=== PATIENT | female | born 1950 | race Caucasian/White ===

== ENCOUNTER 2024-11-27 11:14 | Day surgery (SDC) | payer MEDICARE ==
[2024-11-27] VITALS (14 sets, daily range): BP systolic 140–198; BP diastolic 72–134; PULSE 61–72; RESP 12–15; TEMP 98.1; O2SAT 94–98
[~2024-11-27] VITALS: Ht 152.4 cm; Wt 84.9 kg
[~2024-11-27 11:14] MED LIST: DOCU-122 PO
[2024-11-27] MEDS ORDERED: ASPI81TA52 PO (12:00)
[2024-11-27] MEDS ORDERED: CHOL500050 PO (12:00)
[2024-11-27] MEDS ORDERED: HYDR-3965 PO (12:01)
[2024-11-27] MEDS ORDERED: METH-1026 PO (12:02)
[2024-11-27] MEDS ORDERED: LISI20TA28 PO (12:02)
[2024-11-27] MEDS ORDERED: HYDR12.55 PO (12:03)
[2024-11-27] MEDS: normal saline 1000ml 1,000 ML IV SCH (12:46)
[2024-11-27] MEDS: fentaNYL/PF 50MCG/1 ML 2ML syringe IV ONE (12:46)
[2024-11-27] MEDS: MIDAZolam 1mg/ml 10ml vial IV ONE (12:46)
== END 2024-11-27 15:00 | disposition home or self-care (01) ==
LOC: SSTAY O 11:14 → EDSTATUS 17:00
PROVIDERS: ATTEND Internal Medicine Interventional Cardiology
DX: D05.00 Lobular carcinoma in situ of unspecified breast (principal); I08.3 Combined rheumatic disorders of mitral, aortic and tricuspid valves; I10 Essential (primary) hypertension; E03.9 Hypothyroidism, unspecified; Z85.3 Personal history of malignant neoplasm of breast; Z85.830 Personal history of malignant neoplasm of bone; Z98.890 Other specified postprocedural states; Z79.82 Long term (current) use of aspirin; Z79.891 Long term (current) use of opiate analgesic; Z79.899 Other long term (current) drug therapy
CPT/HCPCS: 93312; 93325; J2250; J3010; J7030